=== PATIENT | female | born 1965 | race African-American/Black ===

== ENCOUNTER 2021-07-19 15:26 | Emergency (ER) | payer OTHER ==
[~2021-07-19] VITALS: Ht 172.7 cm; Wt 95.3 kg
[~2021-07-19 15:26] MED LIST: ACETAMINOPHEN-1 EAC1 PO; ACETAMINOPHEN325 M1 PO; APAP500 PO; BENTYL10 MG PO; CEFTIN500 MG PO; COMPAZINE5 MG PO; DIFLUCAN150 M1 PO; DOXYCYCLINE 10100 M1 PO; FLAGYL500 MG PO; FLEXERIL PO; GENTAK 3 MG/M3 MG/M1 OP; IBUPROFEN 800800 M1 PO; IBUPROFEN 800800 MG PO; INDOMETHACIN 5050 M1 PO; MEDROLDOSEPACK PO; NOHOMEMEDICATIONS; NORCO 5-325 TA1 EACH PO; PERCOCET 5-3251 EACH PO; PROMETHAZINE12.5 M1 PO
[2021-07-19 16:02] LABS: URINE BILIRUBIN NEGATIVE (Negative); URINE BLOOD 2+ (Negative); URINE CLARITY CLEAR; URINE COLOR YELLOW; URINE GLUCOSE-RANDOM* NEGATIVE (Negative); URINE KETONES 1+ (Negative); URINE LEUKOCYTES-REFLEX NEGATIVE (Negative); URINE NITRITE-REFLEX NEGATIVE (Negative); URINE PROTEIN (DIPSTICK) NEGATIVE (Negative); URINE SPECIFIC GRAVITY >= 1.030 (1.005-1.035); URINE UROBILINOGEN 0.2 E.U./dl (0.2-1.0)
[2021-07-19 16:19] LABS: ABSOLUTE NEUTROPHILS 11.9 thou/uL (1.4-8.2); BASOPHILS 0.7 % (0.0-2.0); EOSINOPHILS 0.5 % (0.0-3.0); HEMATOCRIT 42.2 % (37.0-47.0); HEMOGLOBIN 13.6 gm/dL (12.0-15.0); LYMPHOCYTES 14.7 % (24.0-44.0); MCH 25.2 pg (26.0-34.0); MCHC 32.4 g/dL (28.0-37.0); MCV 77.7 fL (80.0-100.0); MONOCYTES 4.4 % (1.0-8.0); PLATELET COUNT 347 thou/uL (150-400); POLYS 79.7 % (36.0-66.0); RBC 5.42 mil/uL (4.20-5.00); WBC 14.9 thou/uL (4.0-11.0)
[2021-07-19 16:20] LABS: SQUAMOUS >10 Many /LPF (0-3); URINE RBC 1-2 Rare /HPF (NONE SEEN); URINE WBC-REFLEX 0-5 Rare /HPF (0-5)
[2021-07-19 16:21] LABS: BACTERIA-REFLEX None Seen /HPF (None Seen); CRYSTALS None Seen /LPF (None Seen)
[2021-07-19 16:38] LABS: CALCIUM 9.9 mg/dL (8.5-10.1); CREATININE 0.8 mg/dL (0.6-1.0)
[2021-07-19 16:44] LABS: POTASSIUM 5.8 mmol/L (3.5-5.1); TOTAL BILIRUBIN 0.7 mg/dL (0.2-1.0); TOTAL PROTEIN 8.9 g/dL (6.4-8.2)
[2021-07-19] MEDS ORDERED: METRONIDAZOLE500 M4 PO (18:39)
[2021-07-19] MEDS ORDERED: BENTYL 10 MG CA10 M1 PO (18:39)
[2021-07-19] MEDS ORDERED: CIPRO500 M1 PO (18:39)
[2021-07-19 18:47] VITALS: BP 161/99
== END 2021-07-19 19:02 | disposition home or self-care (01) ==
LOC: ER 15:26
PROVIDERS: Physician Assistant
DX: K57.92 Diverticulitis of intestine, part unspecified, without perforation or abscess without bleeding (principal); F17.210 Nicotine dependence, cigarettes, uncomplicated; Z90.710 Acquired absence of both cervix and uterus